=== PATIENT | female | born 1965 ===

== ENCOUNTER 2018-08-27 16:31 | Emergency (ER) | payer MEDICAID ==
[~2018-08-27] VITALS: Ht 162.6 cm; Wt 80.7 kg
[2018-08-27] MEDS ORDERED: TRAZ50 PO (16:56)
[2018-08-27] MEDS ORDERED: METO50ER PO (16:57)
[2018-08-27] MEDS ORDERED: Armour Thyroid90 MG PO (16:57)
[2018-08-27] MEDS ORDERED: Norco 10-325 T1 EACH PO (17:44)
== END 2018-08-27 17:57 | disposition home or self-care (01) ==
LOC: ER 16:31
DX: M25.511 Pain in right shoulder (principal); Z88.5 Allergy status to narcotic agent; Z79.899 Other long term (current) drug therapy; I25.2 Old myocardial infarction; E03.9 Hypothyroidism, unspecified; I10 Essential (primary) hypertension
CPT/HCPCS: 73030; 99283-25